=== PATIENT | male | born 1960 | race Caucasian/White ===

== ENCOUNTER → 2016-12-09 | Outpatient (CLI) | payer OTHER ==
[~2016-12-09] MED LIST: ALFU10TA30 PO; MULT-506 PO; NAPR1TAB9 PO; RESV1CAP3 PO; SAW450CA5 PO
--- NOTE | 2016-12-09 15:43 | DIAGNOSTIC IMAGING REPORT ---
KUB CLINICAL HISTORY: N41.1 Chronic [id number] [id number] nephrocalcinosis COMPARISON STUDY: 08/24/2016 FINDINGS: No well-defined calcifications within the region of the renal and psoas shadows. This evaluation is somewhat compromised due to extensive overlying bowel content. Multiple pelvic vascular calcifications unchanged. Osseous structures are intact. IMPRESSION: No well-defined upper urinary tract calcifications within limitations of overlying bowel artifact Electronically signed by: Bert Patino M.D. 12/09/2016 3:42 PM Dictated Date/Time: 12/09/2016 3:41 PM
== END | disposition home or self-care (01) ==
LOC: C.RAD 15:16
PROVIDERS: ATTEND Urology
DX: N20.0 Calculus of kidney (principal)

== ENCOUNTER → 2016-12-30 | Outpatient (CLI) | payer OTHER ==
--- NOTE | 2016-12-30 15:44 | DIAGNOSTIC IMAGING REPORT ---
KUB CLINICAL HISTORY: N20.0 [id number] nephrocalcinosis COMPARISON STUDY: 12/09/2016 FINDINGS: The soft tissues, psoas shadows, renal outlines and intestinal gas pattern appear normal. There is no evidence for bowel obstruction. No abnormal abdominal calcifications are seen. Several vascular calcifications the right lesser extent left soft tissue pelvis IMPRESSION: Negative study. No change from the prior exam. Electronically signed by: Bert Patino M.D. 12/30/2016 3:43 PM Dictated Date/Time: 12/30/2016 3:42 PM
== END | disposition home or self-care (01) ==
LOC: C.RAD 15:04
PROVIDERS: ATTEND Family Medicine
DX: N20.0 Calculus of kidney (principal)

== ENCOUNTER → 2017-05-20 | Outpatient (CLI) | payer OTHER ==
--- NOTE | 2017-05-20 15:57 | DIAGNOSTIC IMAGING REPORT ---
VENOUS REFLUX LW EXT BILAT CLINICAL HISTORY: R LOWER LEG PAIN pain TECHNIQUE: Venous Doppler COMPARISON STUDY: 07/27/2013 FINDINGS: Right leg is considered negative for deep venous thrombosis. All major venous structures are patent. There is no evidence for venous reflux IMPRESSION: 1. Normal study. 2. No evidence for venous reflux The above report was generated using voice recognition software. It may contain grammatical, syntax or spelling errors. Electronically signed by: Bert Patino M.D. 05/20/2017 3:56 PM Dictated Date/Time: 05/20/2017 3:55 PM
== END | disposition home or self-care (01) ==
LOC: C.ULTR 15:04
PROVIDERS: ATTEND Surgery Vascular Surgery
DX: I83.811 Varicose veins of right lower extremity with pain (principal)

== ENCOUNTER → 2017-11-03 | Outpatient (CLI) | payer OTHER ==
[~2017-11-03] MED LIST changes: +ALFU10TA2 PO; -ALFU10TA30 PO
== END | disposition home or self-care (01) ==
LOC: C.LAB 15:04
PROVIDERS: ATTEND Urology
DX: N40.1 Benign prostatic hyperplasia with lower urinary tract symptoms (principal)

== ENCOUNTER → 2018-03-09 | Outpatient (CLI) | payer OTHER ==
[2018-03-09 15:52] LABS: HEMATOCRIT 38.6 % (42-52); HEMOGLOBIN 13.2 g/dL (14.0-18.0); MEAN CELL VOLUME 89.8 fL (80-100); MEAN CORPUSCULAR HEMOGLOBIN 30.7 pg (25-34); MEAN PLATELET VOLUME 9.1 fL (7.4-10.4); PLATELET COUNT 198 K/uL (130-400); RED CELL DISTRIBUTION WIDTH SD 42.1 fL (36.4-46.3); WHITE BLOOD COUNT 4.95 K/uL (4.8-10.8)
[2018-03-09 16:05] LABS: MEAN CORPUSCULAR HGB CONC 34.2 g/dl (32-36)
== END | disposition home or self-care (01) ==
LOC: C.LAB 15:19
PROVIDERS: ATTEND Ophthalmology
DX: H47.10 Unspecified papilledema (principal)

== ENCOUNTER → 2018-03-20 | Outpatient (CLI) | payer OTHER ==
[~2018-03-20] MED LIST changes: +GADAVIST IV PRN
--- NOTE | 2018-03-20 09:05 | DIAGNOSTIC IMAGING REPORT ---
MRI OF THE BRAIN WITHOUT AND WITH IV CONTRAST CLINICAL HISTORY: Papilledema COMPARISON STUDY: No previous studies for comparison. TECHNIQUE: MRI of the brain was performed from the vertex to the skull base utilizing various T1 and T2 weighted sequences. Following the IV administration of 7.5 mL of Gadavist contrast, additional enhanced images were obtained. FINDINGS: Sagittal T1, axial diffusion, proton density and T2 weighted axial, coronal FLAIR, and pre and post axial T1-weighted images were acquired. These were supplemented with post gadolinium coronal T1 weighted images. No intra or extra-axial mass lesions are visualized. Axial diffusion-weighted images reveal no evidence of acute or subacute infarction. There is no evidence of ventricular dilatation. Proton density T2-weighted and FLAIR images reveal a few scattered foci of increased T2 signal within the white matter, likely on a small vessel basis. There are no abnormal flow voids. There is no evidence of pathologic enhancement. IMPRESSION: 1. No acute intracranial findings 2. No evidence of acute or subacute infarction 3. No evidence of intracranial mass 4. No evidence of hydrocephalus Electronically signed by: Larry Sarkar M.D. 03/20/2018 9:03 AM Dictated Date/Time: 03/20/2018 9:01 AM
--- NOTE | 2018-03-20 09:26 | DIAGNOSTIC IMAGING REPORT ---
MRI OF THE ORBITS WITH AND WITHOUT CONTRAST CLINICAL HISTORY: UNSPECIFIED PAPILLEDEMA COMPARISON STUDY: No previous studies for comparison. TECHNIQUE: Utilizing a 1.5 Melinda magnet and dedicated coil, multiplanar, multiecho imaging of the orbits was performed pre and postcontrast administration. Injection of 7.5 cc of Gadavist IV was uneventful. Please note that the MRI of the brain will be reported separately. FINDINGS: The globes are intact. The superior ophthalmic veins are not dilated. No signal abnormality or abnormal enhancement of the optic nerves is noted. Extraocular muscles are intact. Note is made of a 1.3 x 0.7 x 1.1 cm T2 hyperintense intraorbital extraconal mass located within the medial aspect of the right orbit, adjacent to and displacing the medial rectus and superior oblique muscles. Note is made of avid enhancement of the anterior aspect of this mass. The posterior aspect of this mass does not enhance. Posteriorly, this lesion demonstrates intermediate T2 signal. No additional orbital masses are present. There is mild mucosal thickening of the ethmoid sinuses. IMPRESSION: 1.3 x 0.7 x 1.1 cm right orbital extraconal mass located within the medial aspect of the right orbit, adjacent to and displacing the medial rectus and superior oblique muscles. 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 Less likely considerations include lymphoma, orbital venous varix and schwannoma. Electronically signed by: Femi Lunsford M.D. 03/20/2018 9:25 AM Dictated Date/Time: 03/20/2018 9:02 AM
== END | disposition home or self-care (01) ==
LOC: C.MRIBC 07:23
PROVIDERS: ATTEND Ophthalmology
DX: H47.10 Unspecified papilledema (principal); H57.8 Other specified disorders of eye and adnexa